=== PATIENT | male | born 1995 | race Two or more races ===

== ENCOUNTER 2024-09-12 12:21 | Emergency (ER) | payer OTHER, SELFPAY ==
--- NOTE | ~2024-09-12 | XR_ITS ---
EXAMINATION: XR SHOULDER, RIGHT CLINICAL INFORMATION: Pain status-post fall. COMPARISON: None available. TECHNIQUE: AP external rotation, Grashey and scapular Y views of the right shoulder are submitted. FINDINGS: The bones and soft tissues are normal. No fracture. Glenohumeral and acromioclavicular alignment is anatomic with normal joint space. No abnormal soft tissue calcifications. XR/XR shoulder RT min 2V IMPRESSION: Normal right shoulder. Electronically signed by: Robert Soriano MD 09/12/2024 02:32 PM EDT RP
--- NOTE | ~2024-09-12 | XR_ITS ---
EXAMINATION: XR HUMERUS, RIGHT CLINICAL INFORMATION: Pain. COMPARISON: None available. TECHNIQUE: AP and lateral views of the right humerus. FINDINGS: The bones and soft tissues are normal. No fracture. Imaged portions of the shoulder and elbow are unremarkable. XR/XR humerus RT IMPRESSION: Normal right humerus. Electronically signed by: Robert Soriano MD 09/12/2024 02:31 PM EDT
[2024-09-12 12:34] VITALS: BP 108/65; PULSE 90; RESP 20; TEMP 37.1; O2SAT 98; BMI 28.1
--- NOTE | 2024-09-12 12:35 | ED_ITS ---
HPI - Extremity Injury (Upper) General Chief Complaint: Extremity Injury, Upper Stated Complaint: Fall R arm pain Time Seen by Provider: 09/12/24 14:02 Source: patient Mode of arrival: ambulatory Limitations: no limitations History of Present Illness ED Provider: Collette Sagastume PA-C HPI narrative: 28 yo M with a PMH of asthma, anxiety, ADHD, other psychiatric illness, alcohol use disorder presents to the ED s/p fall down stairs yesterday evening c/o right , shoulder, upper arm pain. Patient reports pain is 8/10. Last took ibuprofen with minimal improvement at 10:00. Patient is not on blood thinners and denies hitting head. Denies paresthesias, N/V, dizziness prior to event, LOC. MD complaint: injury to: right, shoulder and arm Onset (ago): day(s) Other injuries: none Severity: moderate Severity scale (1-10): 8 Relieving factors: none Context: fall Associated symptoms: denies other symptoms Treatments prior to arrival: NSAIDS Related Data Allergies Allergy/AdvReac Type Severity Reaction Status Date / Time No Known Allergies Allergy Verified 09/12/24 12:37 Review of Systems Review of Systems: Yes all other systems are reviewed and are negative [facility] Social History Social History Advance Directives: No Advance Directives Information Provided: No Do you have a plan to hurt others: No Plan Physical Exam Vital Signs: Vital Signs: Last Vital Signs Temp 97.9 F 09/12/24 15:47 Pulse 79 09/12/24 15:47 Resp 16 09/12/24 15:47 BP 105/61 09/12/24 15:47 Pulse Ox 98 09/12/24 15:47 O2 Del Method Room Air 09/12/24 15:47 BMI result Body Mass Index 28.1 Appearance: Alert. Oriented X3. Lying on stretcher in no acute distress. Head: normocephalic, atraumatic. HEENT: Normal external inspection. Neck: Normal inspection. Neck supple. CVS: Normal heart rate and rhythm. Pulses normal. Respiratory: No respiratory distress. Abdomen: Normal external inspection Skin: Skin warm and dry. Normal skin color. Normal skin turgor. No rashes. Extremities: Right medial clavicular swelling, pain and tenderness elicited upon palpation to the sternoclavicular joint, acromioclavicular joint, no obvious external abnormalities noted to the shoulder, brachial and radial pulses intact, limited range of motion due to pain. No erythema, warmth. Neuro/psych: Oriented X 3. No motor deficit. No sensory deficit. CN II-XII intact. Normal speech and cognition. Course Course Course Narrative: This is an RME: Additional HPI, ROS, PE not included below will be deferred to primary provider. RME assessment and note performed by: Cassy Hernandez PA-C This is a 45-wmgh-cci-male who presents to the ER with commplaints of right arm pain s/p mechanical fall which occurred yesterday. strong radial pulse Plan: Xray right shoulder/humerus Medications Administered Discontinued Medications Generic Name Dose Route Start Last Admin Trade Name Freq PRN Reason Stop Dose Admin Acetaminophen 650 mg 09/12/24 14:18 09/12/24 14:48 Acetaminophen 325 Mg Tablet PO 09/12/24 14:19 650 mg ONCE ONE Administration Ibuprofen 600 mg 09/12/24 14:18 09/12/24 14:47 Ibuprofen 600 Mg Tablet PO 09/12/24 14:19 600 mg ONCE ONE Administration Medical Decision Making Medical Decision Making MDM Narrative: 28 yo M with a PMH of asthma, anxiety, ADHD, other psychiatric illness, alcohol use disorder presents to the ED s/p fall down stairs yesterday evening c/o right , shoulder, upper arm pain. On exam, patient is nontoxic appearing, neurovascularly intact, there is right medial clavicular swelling, pain and tenderness elicited upon palpation to the sternoclavicular joint, acro mioclavicular joint, no obvious external abnormalities noted to the shoulder, brachial and radial pulses intact, limited range of motion due to pain. No erythema, warmth. Concern for shoulder/humerus/clavicle fracture, dislocation, joint separation, low concern for osteomyelitis as there is no warmth or erythema. Plan: X-ray of right humerus and shoulder X-ray right humerus and shoulder showed no acute abnormalities. Patient stable and safe for discharge home with sling, supportive care, NSAIDs. Patient to her sling for 2 days and increase activity and motion as tolerated. Differential Diagnosis Differential Diagnoses: The differential diagnosis associated with the presentation includes Concern for shoulder/humerus/clavicle fracture, dislocation, joint separation, low concern for osteomyelitis as there is no warmth or erythema. Independent Interpretation I performed an independent interpretation of an: Plain X-Ray Interpretation: no acute fracture appreciated Radiology Impression Discussion of test interpretation with radiology: I have reviewed the radiologist's reading. Prescription Management I considered prescription management with: Pain Medication Chronic Conditions Patient?s care impacted by: Other (anxiety, etoh use) Procedures Orthopedic Splinting/Casting Injury #1: Side: right Upper Extremity Injury Location: shoulder Upper Extremity Immobilizer: sling/shoulder immobilizer Critical Care Time Critical Care Time Critical Care Time: No Discharge Plan Discharge Clinical Impression: Shoulder sprain Qualifiers: Encounter type: initial encounter Shoulder sprain type: unspecified sprain Laterality: right Qualified Code(s): S43.401A - Unspecified sprain of right shoulder joint, initial encounter Patient Disposition: Home, Self-Care Instructions: Shoulder Sprain (ED) Additional Instructions: your xrays today were normal wear the provided sling for the next 48 hours as needed recommend icing several times per day recommend motrin and tylenol as needed for pain follow up with your doctor If you develop new or worsening symptoms call 911 or come back to the ER for further evaluation. Interventions: ED Discharge Assessment Last Done: 09/12/24 15:47 Discharge Date/Time: 09/12/24 15:48 Print Language: Tajik
[2024-09-12 14:21] VITALS: BP 105/61; PULSE 79; RESP 16; TEMP 36.6; O2SAT 98
--- NOTE | 2024-09-12 14:21 | PC.NURSE ---
pt a&ox3, vss, pt c/o 07/09 pain to rt upper arm/shoulder and collarbone, pt states he took 800mg ibuprofen at 10 am with no relief. pt awaiting provider, call mcgrath within reach, will continue to monitor
[2024-09-12] MEDS: Ibuprofen 600 MG TABLET PO (14:47)
[2024-09-12] MEDS: Acetaminophen 325 MG TABLET 650 MG PO (14:48)
--- NOTE | 2024-09-12 14:48 | PC.NURSE ---
pt medicated for pain per order
--- NOTE | 2024-09-12 15:44 | PC.NURSE ---
sling applied, pt left without discharge papers
[2024-09-12 15:47] VITALS: BP 105/61; PULSE 79; RESP 16; TEMP 36.6; O2SAT 98
== END 2024-09-12 15:48 | disposition home or self-care (01) ==
PROVIDERS: Emergency Provider Emergency Medicine
DX: S43.401A Unspecified sprain of right shoulder joint, initial encounter (principal); M79.601 Pain in right arm; W10.9XXA Fall (on) (from) unspecified stairs and steps, initial encounter; Y93.89 Activity, other specified; Y92.89 Other specified places as the place of occurrence of the external cause; Y99.8 Other external cause status
CPT/HCPCS: 73030; 73060; 99283; 99284

== ENCOUNTER 2024-11-01 10:37 | Emergency (ER) | payer OTHER, SELFPAY ==
--- NOTE | ~2024-11-01 | CT_ITS ---
EXAMINATION: CT PELVIS WITH CONTRAST CLINICAL INFORMATION: Rectal abscess COMPARISON: None available. TECHNIQUE: Helical scanning was performed with submillimeter collimation through the pelvis with the use of oral contrast and during bolus intravenous injection of 85 mL of Omnipaque 350 intravenous contrast. Sagittal and coronal multiplanar 2-D reconstructions were obtained. This CT examination was performed using dose optimization techniques as appropriate, variously including the following: *Automated exposure control *Adjustment of mA and/or kV according to patient size (this includes techniques or standardized protocols for targeted exams where dose is matched to indication/reason for exam; i.e. extremities or head) *Use of iterative reconstruction technique DLP: 327 mGy-cm FINDINGS: The rectum is nondistended, limiting evaluation. Question wall thickening and some heterogeneous attenuation of the distal rectal wall. This is suboptimally visualized/evaluated due to the lack of distention. Inflammatory/infectious process in this region cannot be excluded. No discrete peripherally enhancing fluid attenuation collection is identified by CT. There is a thin tract of air extending posterior to the rectum, in the posterior soft tissues. Image 6:91, 3:44-49. This raises the possibility of a sinus tract. No abnormally dilated bowel loops seen in the pelvis. No significant presacral edema identified. No free fluid is seen. Urinary bladder appears unremarkable. No groin lymphadenopathy. No lymphadenopathy seen in the pelvis. No acute or suspicious osseous abnormality seen. CT/CT pelvis w IV con IMPRESSION: Rectum is nondistended limiting evaluation. Apparent wall thickening, with heterogeneous attenuation of the distal rectal wall raises the possibility of inflammatory/infectious process. Nondistention limits evaluation.. No drainable fluid attenuation collection is identified by CT. Thin tract of air extending posterior to the rectum in the soft tissues, raising the possibility of a sinus tract. Clinically correlate. Recommend surgical consultation. MRI evaluation without and with contrast can be considered, as clinically indicated. Electronically signed by: Vito Payan MD 11/01/2024 06:06 PM MELISSA
[2024-11-01 11:36] VITALS: BP 113/77; PULSE 99; RESP 18; TEMP 36.7; O2SAT 100; BMI 26.9
--- NOTE | 2024-11-01 11:40 | ED_ITS ---
HPI - General Adult General Chief complaint: Urogenital-Male Stated complaint: Hemorrhoid Time Seen by Provider: 11/01/24 12:34 Source: patient Mode of arrival: ambulatory Limitations: no limitations History of Present Illness ED Provider: Sherie MILNER narrative: Patient is a 29-year-old male presenting to the emergency department with complaint of severe rectal pain for the past week. States he went to urgent care earlier in the week, had a rectal exam there and was told he had hemorrhoids, was prescribed Proctofoam and Gavilax. Reports he has been straining to have bowel movements. Denies any relief from the medications. Pain increasing, today noted pink tinge when wiping. Denies any other hematochezia or melena. Denies any anal intercourse. Denies fevers. MD complaint: rectal pain Onset (ago): week(s) Severity: severe Quality: aching Pain Consistency: constant Relieving factors: none Associated symptoms: denies other symptoms Treatments prior to arrival: other Related Data Previous Rx's ?Medication ?Instructions ?Recorded amoxicillin 875 mg-potassium 1 tab PO BID #14 tabs 11/01/24 clavulanate 125 mg tablet docusate sodium 100 mg capsule 100 mg PO BID #14 caps 11/01/24 ibuprofen 600 mg tablet 600 mg PO Q6H PRN pain #20 tabs 11/01/24 Allergies Allergy/AdvReac Type Severity Reaction Status Date / Time No Known Allergies Allergy Verified 11/01/24 11:38 Review of Systems 2 Review of Systems: As per HPI. Yes all other systems are reviewed and are negative Constitutional: Constitutional: Reports as per HPI [facility] Social History Social History Advance Directives: No Do you have a plan to hurt others: No Plan Physical Exam ED Vital Signs: Vital Signs - 24 hr 11/01/24 11:36 11/01/24 15:23 Temperature 98.1 F 98.5 F Pulse Rate 99 72 Respiratory Rate 18 18 Blood Pressure 113/77 112/57 L Pulse Oximetry 100 100 Oxygen Delivery Method Room Air Room Air BMI result Body Mass Index 26.9 Vital signs have been reviewed and appear to be correct. Blood pressure normal. Heart rate normal. Respiratory rate normal. Temperature normal. Oxygen saturation normal. Const General: cooperative, healthy appearing and no acute distress Orientation/consciousness: oriented to person, oriented to place, oriented to time and patient oriented x3 Limitations: no limitations HENMT Head: Yes normocephalic and Yes atraumatic Ears: external ears normal General nose exam: Normal external nose present Face and sinus: Yes face symmetric Mouth: oropharynx normal and moist mucous membranes Throat: Yes uvula midline Eyes Pupils: Equal, round and reactive pupils present Neck Neck: Yes normal visual inspection and Yes supple Resp Effort & Inspection: normal respiratory effort and able to speak in complete sentences Auscultation: clear to auscultation bilaterally Cardio Rate: regular rate Rhythm: regular rhythm Heart sounds: S1 normal heart sound present and S2 normal heart sound present GI Other: Rectal exam chaperoned by KATHI Paz. Palpation (GI): Soft to palpation and nontender Auscultation: normoactive bowel sounds Rectal Exam - Male: Yes visual inspection normal, Yes normal sphincter tone, No External hemorrhoid(s) present, Yes mass (left wall of rectum, tender) and Yes tenderness General: Yes no CVA tenderness Back/Spine/Pelvis Back: no CVA tenderness Skin General skin exam: elasticity normal and turgor normal Neuro General: oriented to person, oriented to place, oriented to time, patient oriented x3, moves all extremities, no focal motor deficits and CN's II-XI intact bilaterally Cranial nerves: Yes Equal, round and reactive pupils present Cognition (Neuro): normal cognition Extrem General: Yes full ROM, Yes no pedal edema and Yes no calf tenderness Psych Mental Status: mental status grossly normal Affect: normal affect Thought process: Normal thought process present Course Course Course Narrative: This is a rapid medical exam performed by Palmira Moreno PA-C. The patient is a 29-year-old male with a history of hemorrhoids, presenting with thrombosed hemorrhoid x1 week. Patient was seen at urgent Care, received topical medications, his symptoms have not improved. Patient states it is painful and firm. No indication for labs or imaging at this time. The patient is stable can return to the waiting room pending his full medical assessment. Medications Administered Discontinued Medications Generic Name Dose Route Start Last Admin Trade Name Freq PRN Reason Stop Dose Admin Iohexol 85 ml 11/01/24 15:27 11/01/24 15:27 Iohexol 350 Mg/Ml 75 Ml Infus..Btl IV 11/01/24 15:28 85 ml ONCE ONE Administration Medical Decision Making Medical Decision Making [facility] Narrative: Patient is a 29-year-old male presenting to the emergency department with complaint of severe rectal pain for the past week. On exam patient is awake, A+Ox3, VS WNL, afebrile, normal neurological exam without focal deficits, physical exam findings as above. Given reported symptoms and physical exam findings, initial differential includes abscess, mass, thrombosed internal hemorrhoid. Labs unremarkable, no leukocytosis. CT notable for rectal wall thickening concerning for infectious/inflammatory process. My interpretation is in agreement with the radiologist's interpretation. Case discussed with Dr. Blank who recommends starting patient on Augmentin, follow up with Dr. Vieira this week, and colace BID, Tylenol and ibuprofen for pain. Results discussed with patient and all questions answered. Return precautions discussed. Patient verbalized understanding of and agreement with plan. Differential Diagnosis Differential Diagnoses: The differential diagnosis associated with the presentation includes As per [facility] Admission/Observation Consideration of admission/observation: Escalation of care including admission/observation considered Patient would have been admitted to the hospital had their work up had any findings where hospital admission was appropriate and their clinical presentation warranted hospital admission. Consult Healthcare Provider Management of the patient was discussed with: [employer] (Dr. Blank, surgery) Lab Data [facility] Lab Attestation statement: I reviewed the patient's lab results. As per [facility] 11/01/24 14:11 11/01/24 14:11 Labs: Lab Results 11/01/24 Range/Units 14:11 WBC 9.5 (4.8-10.8) X10*3/uL RBC 4.33 L (4.60-5.80) X10*6/uL Hgb 14.2 (14.0-18.0) g/dl Hct 41.0 L (42.0-52.0) % MCV 94.7 (80.0-98.0) fL MCH 32.8 (27.0-33.0) pg MCHC 34.6 (31.0-36.0) g/dl RDW 13.8 (11.0-16.0) % Plt Count 285 (160-400) X10*3/uL MPV 8.1 L (9.4-12.4) fL Immature Gran % (Auto) 0.3 (0.0-0.4) % Neut % (Auto) 68.0 (45-73) % Lymph % (Auto) 20.5 (20-40) % Cannon % (Auto) 9.4 (2-11) % Eos % (Auto) 1.6 (0-4) % Baso % (Auto) 0.2 (0-2) % Lymph # (Auto) 2.0 (1.2-4.9) X10*3/uL Cannon # (Auto) 0.9 (0.1-1.2) X10*3/uL Eos # (Auto) 0.2 (0.0-0.4) X10*3/uL Baso # (Auto) 0.0 (0.0-0.2) X10*3/uL Abs Immat Gran (auto) 0.03 (0.00-0.03) X10*3/uL Absolute Neuts (auto) 6.5 (2.0-8.3) x10*3/uL Absolute Nucleated RBC 0.000 (0.0-0.012) X10*3/uL Nucleated RBC % (auto) 0.0 (0.0-0.2) /100WBC Sodium 145 (135-145) mmol/L Potassium 3.5 (3.3-5.1) mmol/L Chloride 110 H (96-108) mmol/L Carbon Dioxide 27 (22-29) mmol/L Anion Gap 12 (12-20) BUN 7 L (9-16) mg/dL Creatinine 0.68 (0.5-1.4) mg/dL Estim Creat Clear Calc 160.2 Estimated GFR > 60 Random Glucose 76 (60-115) mg/dL Calcium 9.0 (8.4-10.2) mg/dL Total Bilirubin 0.4 (0.0-1.0) mg/dL AST 22 (5-37) U/L ALT 22 (0-40) U/L Alkaline Phosphatase 74 (39-117) U/L Total Protein 7.0 (6.5-8.0) g/dL Albumin 4.3 (3.5-5.0) g/dL Independent Interpretation I performed an independent interpretation of an: CT Scan Interpretation: CT notable for rectal wall thickening concerning for infectious/inflammatory process. Radiology Impression Discussion of test interpretation with radiology: I have reviewed the radiologist's reading. Radiologist Impression: CT/CT pelvis w IV con IMPRESSION: Rectum is nondistended limiting evaluation. Apparent wall thickening, with heterogeneous attenuation of the distal rectal wall raises the possibility of inflammatory/infectious process. Nondistention limits evaluation.. No drainable fluid attenuation collection is identified by CT. Thin tract of air extending posterior to the rectum in the soft tissues, raising the possibility of a sinus tract. Clinically correlate. Recommend surgical consultation. MRI evaluation without and with contrast can be considered, as clinically indicated. External Record Review External record reviewed: Inpatient record, Office record and Outpatient record Prescription Management I considered prescription management with: Pain Medication, Antibiotic and Other Critical Care Time Critical Care Time Critical Care Time: Yes Total Critical Care Time: 40 Attestation: I have personally provided critical care time exclusive of time spent on separately billable procedures. Time includes review of lab data, radiology results, discussion with consultants, and monitoring for potential decompensation. Intervention performed as documented. Discharge Plan Discharge Clinical Impression: Acute proctitis Patient Disposition: Home, Self-Care Instructions: Proctitis (ED), Sitz Bath (DC), Rectal Pain (ED) Additional Instructions: You were evaluated in the emergency department today for rectal pain. You are being discharged on a course of antibiotics. Complete the full course as prescribed. You are also being prescribed docusate sodium which is a stool softener. We recommend that you take 600 mg of ibuprofen or 650 mg of Tylenol every 6 hours as needed for pain. If necessary, you can alternate these medications every 3 hours. For example at 9:00 a.m. take Tylenol, then at noon take ibuprofen, then at 3:00 p.m. take Tylenol, etc.. It is important that you call the surgery office in the morning to schedule an appointment for follow-up this week. Return to the emergency department if you develop fever, chills, body aches, nausea/vomiting, drainage from your rectum or any other concerning symptoms. Prescriptions: New amoxicillin-pot clavulanate 875-125 mg tablet 1 tab PO BID Qty: 14 0RF docusate sodium 100 mg capsule 100 mg PO BID Qty: 14 0RF ibuprofen 600 mg tablet 600 mg PO Q6H PRN (Reason: pain) Qty: 20 0RF Referrals: Dennis Vieira MD [Physician] - 1 day Stand Alone Forms: Work/School Release Print Language: Vietnamese
[2024-11-01 14:15] LABS: MANUAL DIFF FLAG NO
--- NOTE | 2024-11-01 14:17 | PC.NURSE ---
20gIV placed in the left AC - labs obtained/sent to lab. pt waiting to go to CT at this time.
[2024-11-01 14:19] LABS: Basophils Percent Auto 0.2 % (0-2); Eosinophils Absolute Auto 0.2 X10*3/uL (0.0-0.4); Eosinophils Percent Auto 1.6 % (0-4); Hemoglobin 14.2 g/dl (14.0-18.0); Imm Gran Abs Auto 0.03 X10*3/uL (0.00-0.03); Imm Gran Pct Auto 0.3 % (0.0-0.4); Lymphocytes Percent Auto 20.5 % (20-40); Mean Corpuscular HGB Conc 34.6 g/dl (31.0-36.0); Mean Corpuscular Hemoglobin 32.8 pg (27.0-33.0); Mean Corpuscular Volume 94.7 fL (80.0-98.0); Mean Platelet Volume 8.1 fL (9.4-12.4); Monocytes Absolute Auto 0.9 X10*3/uL (0.1-1.2); Monocytes Percent Auto 9.4 % (2-11); Neutrophils Absolute Auto 6.5 x10*3/uL (2.0-8.3); Platelet Count 285 X10*3/uL (160-400); Red Blood Count 4.33 X10*6/uL (4.60-5.80); Red Cell Distribution Width 13.8 % (11.0-16.0); White Blood Count 9.5 X10*3/uL (4.8-10.8)
[2024-11-01 14:34] LABS: Alanine Aminotransferase 22 U/L (0-40); Albumin Level 4.3 g/dL (3.5-5.0); Alkaline Phosphatase 74 U/L (39-117); Anion Gap 12 (12-20); Aspartate Amino Transferase 22 U/L (5-37); Bilirubin Total 0.4 mg/dL (0.0-1.0); Blood Urea Nitrogen 7 mg/dL (9-16); Carbon Dioxide 27 mmol/L (22-29); Chloride 110 mmol/L (96-108); Creatinine Clr Calc Pharmacy 160.2; Estimated Glomerular Filt Rate > 60; Glucose Random 76 mg/dL (60-115); Potassium 3.5 mmol/L (3.3-5.1); Sodium 145 mmol/L (135-145)
[2024-11-01 15:23] VITALS: BP 112/57; PULSE 72; RESP 18; TEMP 36.9; O2SAT 100
--- NOTE | 2024-11-01 15:23 | PC.NURSE ---
pt to CT at this time.
[2024-11-01] MEDS: iohexoL 350 MG/ML 75 ML INFUS..BTL 85 ML IV (15:27)
[2024-11-01 18:51] VITALS: BP 115/87; PULSE 70; RESP 18; TEMP 36.9; O2SAT 99
== END 2024-11-01 18:55 | disposition home or self-care (01) ==
PROVIDERS: Registered Nurse Emergency; Emergency Provider Emergency Medicine; PCP Nurse Practitioner Family
DX: K64.5 Perianal venous thrombosis (principal); K62.89 Other specified diseases of anus and rectum; R10.2 Pelvic and perineal pain; Z79.899 Other long term (current) drug therapy
CPT/HCPCS: 36415; 72193; 80053; 85025; 99282; 99283; 99284; Q9967

== ENCOUNTER 2024-12-01 12:28 | Outpatient (AMB) | payer OTHER, SELFPAY ==
--- NOTE | 2024-12-01 12:34 | MHC.PC.OV ---
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 Laser Print Operator Required: No Allergies No Known Allergies Allergy (Verified 12/01/24 12:50) Medication List - Last Reviewed 12/07/24 by Roxanna España acamprosate 666 mg PO TID albuterol sulfate 2.5 mg inhalation Q6H PRN amoxicillin-pot clavulanate 875-125 mg 1 tab PO BID aripiprazole 10 mg PO DAILY buspirone 5 mg PO BID citalopram 10 mg PO DAILY clonidine HCl 0.1 mg PO TID cyclobenzaprine 5 mg PO TID PRN docusate sodium 100 mg PO BID hydroxyzine HCl 50 mg PO TID PRN ibuprofen 600 mg PO Q6H PRN pantoprazole 40 mg PO DAILY prazosin 1 mg PO BEDTIME quetiapine 100 mg PO BEDTIME thiamine HCl (vitamin B1) 100 mg PO DAILY Tobacco use date assessed: 12/01/24 Dental Screening Dental Screen Date: 12/01/24 Did you have a dental visit in the last 12 months?: Yes Did you have a dental problem in the last 6 months where you did not have access to dental care?: No Was dental information given to patient?: Yes HPI HPI Comments History of Present Illness Details 29-year-old male presents to establish care Prior PCP? - Dr. Finnegan, [facility] Last office visit/CPE - About a year ago Labs: - Had lab work two weeks ago at [facility] in [place]. Admitted from [facility], where he was hospitalized x 6 days for alcohol detox. Was hospitalized x 2 days. He left AMA from [facility] on the 3rd day of admission. Not currently in detox. He notes that he is in alcohol remission. He drank 50 ml/10 nips of vodka daily for the past 2-3 years. He has not drank alcohol in the past 2 weeks. Acute issue(s) - Asthma - on albuterol inhaler - Anxiety and depression - on clonidine, celexa, ability, hydroxyzine, trazadone, and Seroquel - ADHD - was on Adderall until he was 18 years old - Alcohol use disorder - on acamprosate Past Medical History - Asthma - Anxiety - Depression - Alcohol use disorder Surgical History - None Family History - Dad: Asthma, alcohol abuse - Mom: Diabetes, alcohol abuse Social History - Smokes half a pack of cigarette daily; has been smoking x 9 years. Vapes nicotine about twice monthly. Has not drank alcohol in the past 2 weeks. Smokes 0.25 oz cannabis daily; has been smoking x 15 years - Has been making healthy dietary choices. He does not exercise. He does not sleep well; trouble falling asleep; sleeps an average of 4 hours; attributes his poor sleep to not drinking alcoho - Resides in a homeless correction. Health maintenance - Last eye exam was several years ago; referred to ophthalmology for routine eye care. - Last dental visit was 3 years ago; encouraged to schedule an appointment with his dentist for routine dental care. - Last tetanus vaccine was probably within the past 2 years. - Has not been vaccinated for the flu this season; declines vaccination. Specialists He will follow up to schedule an appointment to establish care with a therapist at [facility] discharge documentation Hospital course: Briefly, Edel [place] is a 29-year-old un-domiciled male with alcohol use disorder who presented from his detox facility with 4 days of nausea and vomiting, found to have alcohol withdrawal, acute kidney injury, and small pockets of air along the gastric wall on CT A/P raising the question of emphysematous gastritis. General surgery and GI were consulted and recommended conservative management with bowel rest, IV fluids, NG tube placement for decompression and IV PPI twice daily. GI noted that similar findings could be seen in patients with frequent or severe vomiting. The patient had no fever or evidence of GI bleed. The patient was started on cefepime and transitioned to IV ceftriaxone and metronidazole. His symptoms improved with decompression and IV fluid resuscitation. On the evening of November 16, the patient expressed that he wished to leave AMA, and after discussion of the risks, he was discharged with a 5 day course of oral antibiotics. CBC, BMP, chest x-ray, and CT abdomen pelvis on 11/16/2024 at [facility] were normal; ECG showed sinus tachycardia. [facility] Medical History (Updated 12/07/24 @ 13:29 by Bryan Fox CNP) Asthma Family History (Updated 12/01/24 @ 12:49 by Roxanna España) Mother Alcohol abuse Asthma Father Alcohol abuse Diabetes Brother Asthma Social History (Updated 12/01/24 @ 12:47 by Roxanna España) Housing: Other (correction) Patient Tobacco Use Status: Current everyday Tobacco user Cigarette Packs Per Day: 0.5 Cigarettes Per Day: 10 e-Cigarette/Vaping Use: Currently Using Second Hand Smoke Exposure: No Substance Use Type: Marijuana service: No Current occupational status: unemployed Current occupational exposures/hazards: No Cognitive needs: No Hearing needs: No Vision needs: No Questionnaire PHQ-9 Over the last 2 weeks, how often have you been bothered by any of the following problems? 1. Little interest or pleasure in doing things: not at all 2. Feeling down, depressed, or hopeless: not at all 3. Trouble falling or staying asleep, or sleeping too much: nearly every day 4. Feeling tired or having little energy: nearly every day 5. Poor appetite or overeating: nearly every day 6. Feeling bad about yourself - or that you are a failure or have let yourself or your family down: not at all 7. Trouble concentrating on things, such as reading the newspaper or watching television: not at all 8. Moving or speaking so slowly that other people could have noticed. Or the opposite - being so fidgety or restless that you have been moving around a lot more than usual: not at all 9. Thoughts that you would be better off or of hurting yourself in some way: not at all Total score: 9 Depression Screening Interpretation: Positive Depression Screening Follow-up: Existing condition and In treatment Depression Screening Done: Yes 79249 - PHQ-9 Billing: Yes Source: Developed by Drs. Ricardo Puri, Rosanne Meek, Rodolfo Taylor and colleagues, with an educational xavier from [employer]. Thrive Questionnaire Date Thrive assessed: 12/01/24 I am a: Patient What is your living situation today?: I do not have a steady places to live I am staying at a correction Within the past 12 months, did the food you bought not last and you didn't have the money to get more?: Often true Within the past 12 months, did you worry whether your food would run out before you got money to buy more?: Often true Do you have trouble paying for medicines?: Yes Do you have trouble getting transportation to medical appointments?: Yes Do you have trouble paying your heating and electricity bill?: Yes Do you have trouble taking care of your child, family member or friend?: Yes Do you have trouble with day-to-day activities such as bathing, preparing meals, shopping, managing finances, etc.?: No Are you currently unemployed and looking for a job?: Yes Are you interested in more education?: Yes Please select the resources that you would like help with: Housing/Correction, Food, Paying for medicine, Transportation, Utilities and Education Currently or been in a relationship where the following occur: No concerns reported THRIVE Score: 5 AUDIT C Alcohol Use Questionnaire (AUDIT-C) 1. How often do you have a drink containing alcohol?: Never (He has h/o alcohol use disorder but has not drank in the pat 2 weeks) Total Score: 0 Score Reviewed/Action Taken: Yes MINI-7 AMB Questionnaire MINI-7 Date MINI - 7 assessed: 12/01/24 Feeling nervous, anxious, or on edge: 3 = Nearly every day Not being able to stop or control worryin = Nearly every day Worrying too much about different things: 3 = Nearly every day Trouble relaxin = Nearly every day Being so restless that it is hard to sit still: 3 = Nearly every day Becoming easily annoyed or irritable: 3 = Nearly every day Feeling afraid as if something awful might happen: 3 = Nearly every day Total MINI-7 score (0-4 normal; 5-9 mild; 10-14 moderate; 15-21 severe): 21 Source: Developed by Drs. Ricardo Puri, Rosanne Meek, Rodolfo Taylor and colleagues, with an educational xavier from [employer]. MINI-7 Assessment Billing MINI-7 Assessment Tool: MINI-7 Assessment 04334 ACT Questionnaire In the past 4 weeks, how much of the time did your asthma keep you from getting as much done at work, school or at home?: None of the time During the past 4 weeks, how often have you had shortness of breath?: Once a day During the past 4 weeks, how often did your asthma symptoms wake you up at night or earlier than usual in the morning?: Once or twice per week During the past 4 weeks, how often have you had to use your rescue inhaler or nebulizer medication?: More than 3 times per day (twice a day) How would you rate your asthma control during the past 4 weeks?: Somewhat controlled ACT Interpretation: Positive Score: 15 Review of Systems Const Details: Denies chills, Denies fatigue, Denies fever(s), Denies headache(s) and Denies weakness HEENT Denies change in vision, Denies dizziness, Denies headache(s), Denies hearing loss, Denies nasal congestion, Denies sinus pain, Denies sinus pressure and Denies sore throat Card Denies chest pain, Denies lightheadedness, Denies dyspnea and Denies other (palpitations) Resp Denies cough, Denies dyspnea and Denies wheezing GI Denies abdominal pain, Denies melena, Denies hematochezia, Denies change in bowel habits, Denies dyspepsia and Denies nausea Denies hematuria and Denies dysuria Musc Denies abnormal gait, Denies myalgias, Denies arthralgias, Denies numbness and Denies tingling Skin/Breast Denies rash, Denies unusual bruising and Denies wounds Neuro Denies abnormal gait, Denies dizziness, Denies headache(s), Denies memory loss, Denies numbness, Denies Sensory deficit (Neuro), Denies tingling and Denies weakness Psych Reports anxiety, Reports depression and Denies memory loss Endo Denies cold intolerance, Denies fatigue, Denies heat intolerance, Denies polydipsia and Denies polyuria Siddhartha/Lymph Denies easy bleeding and Denies easy bruising Aller/Immun Denies wheezing Physical exam (Primary Care) Vital Signs: Last Vital Signs Temp 98.4 F 12/01/24 12:43 Pulse 92 12/01/24 12:43 Resp 16 12/01/24 12:43 BP 102/58 L 12/01/24 12:43 Pulse Ox 96 12/01/24 12:43 Oxygen Delivery Method Room Air 12/01/24 12:43 BMI result Body Mass Index 30.0 Tobacco/Smoking Status: Tobacco use Status Tobacco use date assessed 12/01/24 12/01/24 12:41 Patient Tobacco Use Status Current everyday Tobacco 12/01/24 12:47 e-Cigarette/Vaping Use Currently Using 12/01/24 12:47 PHQ-9: PHQ-9 Score PHQ-9: Total score 9 12/07/24 14:14 Depression Screening Interpretation: Positive Depression Screening Follow-up: Existing condition and In treatment Thrive Assessment: Date of Thrive Assessment Date Thrive assessed 12/01/24 12/01/24 12:41 Currently or been in a relationship where the following occur: No concerns reported Const Other: General: no acute distress, well developed, alert and awake Nutritional Appearance: well nourished Orientation/consciousness: patient oriented x3 HENMT Head: Yes normocephalic and Yes atraumatic Ears: hearing grossly normal bilaterally and TM's normal bilaterally General nose exam: Normal external nose present and Normal nares present Mouth: Normal oral and palatal mucosa present and moist mucous membranes Teeth and gingiva: dentition normal Throat: Yes oropharynx normal Eyes Pupils: Equal, round and reactive pupils present and Pupil accommodation reflex normal EOM: EOMs intact bilaterally Neck Neck: Yes normal visual inspection, Yes no lymphadenopathy and Yes trachea midline Thyroid: Thyroid normal Carotids: no bruits Lymphatic: no lymphadenopathy noted Chest Chest palpation & inspection: normal inspection of the chest Resp Effort & Inspection: normal respiratory effort Auscultation: clear to auscultation bilaterally Cardio Rate: regular rate Rhythm: regular rhythm Heart sounds: S1 normal heart sound present, S2 normal heart sound present, no gallops, no murmurs and no rubs Bruits: no abdominal aortic bruits and no carotid bruits GI Palpation (GI): No Abdominal aortic bruit present, Soft to palpation, nontender, No hepatosplenomegaly present and No Rebound tenderness present Auscultation: normal bowel sounds General: Yes no CVA tenderness Back/Spine/Pelvis Back: no CVA tenderness Cervical Spine: cervical ROM normal and No Cervical spine tenderness Thoracic/Lumbar Spine: thoraco-lumbar ROM normal, No pain with thoraco-lumbar ROM, No thoracic spinal tenderness and No lumbar spinal tenderness Skin General: warm and dry. Normal skin color. Normal skin turgor Lesions: no lesions Rashes: no rashes Trauma: no lacerations or abrasions Wounds: no wounds Nails: normal Neuro General: patient oriented x3, gait normal and CN's II-XI intact bilaterally Cranial nerves: Yes Equal, round and reactive pupils present Cognition (Neuro): normal cognition Gait exam (Neuro): Normal gait present Motor exam (neuro): 5/5 motor strength present throughout Sensory Exam: No Sensory deficit (Neuro) Deep tendon reflexes (DTR's): Right patellar reflex intensity grade: 2+ and Left patellar reflex intensity grade: 2+ Extrem General: Yes normal to inspection, No edema and No calf tenderness Psych Appearance: grossly normal Affect: normal affect Attitude: cooperative Thought process: Normal thought process present Coding Level of Care Code New Pt Level 5 (06785) New Pt Prev Care 18-39yr(45825 Diagnoses Normal physical examination, routine Z00.00 Anxiety F41.9 Depression F32.A Asthma J45.909 Smoking 1/2 pack a day or less F17.210 Current vaping on some days Z72.89 Cannabis use disorder F12.90 Alcohol use disorder in remission F10.91 Laboratory tests ordered as part of a complete physical exam (CPE) Z00.00 Additional Codes Asthma Control Questionnaire - ACT Interpretation: Positive ([id number]) MINI-7 Assessment Billing - MINI-7 Assessment Tool: MINI-7 Assessment 01191 ([id number]) PHQ-9 - 64511 - PHQ-9 Billing: Yes ([id number]) Assessment & Plan Assessment & Plan (1) Normal physical examination, routine: Code(s): Z00.00 - Encounter for general adult medical examination without abnormal findings Category: Medical Plan: No significant functional limitation noted. Continue current treatment regimen. Healthy diet and routine exercise encouraged. Will request his health record from [facility] in [place]. He will follow-up in 2 months for chronic disease management and labs review or return sooner with symptoms or concerns. Verbalized understanding and agreed with the treatment plan. (2) Anxiety: Code(s): F41.9 - Anxiety disorder, unspecified Category: Medical Plan: PHQ-9 and MINI-7 scores reveals mild depression and severe anxiety respectively. Continue current treatment regimen. Routine exercise encouraged. Encouraged to establish with a therapist as planned. Follow-up in 2 months or sooner with symptoms or concerns. Verbalized understanding and agreed with the plan. (3) Depression: Code(s): F32.A - Depression, unspecified Category: Medical Plan: Reports as per HPI. (4) Asthma: Code(s): J45.909 - Unspecified asthma, uncomplicated Category: Medical Plan: ACT score is 15; partially control asthma. Continue current treatment regimen. Follow-up with symptoms or concerns. Verbalized understanding and agreed with the plan. (5) Smoking 1/2 pack a day or less: Code(s): F17.210 - Nicotine dependence, cigarettes, uncomplicated Category: Social Hx Plan: He smokes 10 cigarettes daily and has been smoking for the past 9 years. Declines medication treatment for smoking cessation. Instructed on the health risks and complications of smoking encouraged to quit. He notes that he has a ability to stop smoking without medication treatment and will do so. Encouraged to follow-up as needed. Verbalized understanding and agreed with the plan. (6) Current vaping on some days: Code(s): Z72.89 - Other problems related to lifestyle Category: Social Hx Plan: He vapes nicotine occasionally. Declines treatment for nicotine cessation. Instructed on the health risks and complications of vaping. He notes that he would stop vaping without treatment. Follow-up as needed. Verbalized understanding and agreed with the plan. (7) Cannabis use disorder: Code(s): F12.90 - Cannabis use, unspecified, uncomplicated Category: Medical Plan: He smokes 0.25 oz cannabis daily; has been smoking x 15 years. Encouraged to limit or avoid smoking cannabis. (8) Alcohol use disorder in remission: Code(s): F10.91 - Alcohol use, unspecified, in remission Category: Medical Plan: He has history of drinking 50 ml/10 nips of vodka daily for the past 2-3 years. He has not drank alcohol in the past 2 weeks. Continue current treatment regimen. Encouraged to continue to abstain from alcohol consumption. He is interested in a referral for alcohol rehab. Referred to [facility] comprehensive care. (9) Laboratory tests ordered as part of a complete physical exam (CPE): Code(s): Z00.00 - Encounter for general adult medical examination without abnormal findings Category: Medical Plan: Fasting labs ordered as part of a complete physical exam. Advised to fast for at least 10 hours before getting labs drawn. May drink water Verbalized understanding and agreed with treatment plan. Orders: Orders Comprehensive [place]. Panel Fast Today Z00.00 - Encounter for general adult medical examination without abnormal findings Lipid Panel Today Z00.00 - Encounter for general adult medical examination without abnormal findings UA CC w/rflx Micro + Cult Today Z00.00 - Encounter for general adult medical examination without abnormal findings Complete Blood Count Auto Diff Today Z00.00 - Encounter for general adult medical examination without abnormal findings TSH reflex Free T4 Today Z00.00 - Encounter for general adult medical examination without abnormal findings Referrals Addiction Medicine Referral F10.91 - Alcohol use, unspecified, in remission
[2024-12-01 12:43] VITALS: BP 102/58; PULSE 92; RESP 16; TEMP 36.9; O2SAT 96
== END 2024-12-01 13:50 | disposition home or self-care (01) ==
PROVIDERS: PCP Nurse Practitioner Family; Visit Provider Nurse Practitioner Family
DX: Z00.00 Encounter for general adult medical examination without abnormal findings (principal); F41.9 Anxiety disorder, unspecified; F32.A Depression, unspecified; J45.909 Unspecified asthma, uncomplicated; F17.210 Nicotine dependence, cigarettes, uncomplicated; Z72.89 Other problems related to lifestyle; F12.90 Cannabis use, unspecified, uncomplicated; F10.91 Alcohol use, unspecified, in remission